=== PATIENT | female | born 1965 | race Caucasian/White ===

== ENCOUNTER 2023-11-07 08:00 | Outpatient (CLI) | payer OTHER ==
--- NOTE | 2023-11-07 14:21 | XRAY Report ---
PROCEDURE: Finger(s) RT INDICATIONS: CONTUSION OF RIGHT HAND TECHNIQUE: AP hand, 2 views of the fourth finger(s) acquired. COMPARISON: None. FINDINGS: Bones: No fractures or dislocations. No suspicious bony lesions. Soft tissues: No suspicious soft tissue calcifications or masses. IMPRESSION: No visualized acute fracture or dislocation. However, occult injury cannot be excluded. Recommend le rt interval imaging follow-up in 7-10 days as clinically indicated for additional evaluation. Reviewed by: Jackie Randolph MD on 11/07/2023 2:20 PM PDT Approved by: Jcakie Randolph MD on 11/07/2023 2:20 PM PDT Station ID: [id number]
== END 2023-11-07 23:59 | disposition home or self-care (01) ==
LOC: DI.S 08:00
PROVIDERS: ATTEND Registered Nurse
DX: S60.221A Contusion of right hand, initial encounter (principal)

== ENCOUNTER 2023-11-29 09:18 | Emergency (ER) | payer OTHER ==
[2023-11-29 09:43] VITALS: O2SAT 100
--- NOTE | 2023-11-29 10:31 | XRAY Report ---
PROCEDURE: Hand 3+V RT INDICATIONS: Trauma TECHNIQUE: 3 views of the hand(s) acquired. COMPARISON: None. FINDINGS: Bones: No fractures or dislocations. No suspicious bony lesions. Soft tissues: No suspicious soft tissue calcifications or masses. IMPRESSION: No acute bony abnormality. Reviewed by: Wilfred Paredes MD on 11/29/2023 10:29 AM PDT Approved by: Wilfred Paredes MD on 11/29/2023 10:29 AM PDT Station ID: [id number]
--- NOTE | 2023-11-29 11:36 | ED Physician Documentation ---
PD HPI UPPER EXT INJURY - Stated complaint Stated Complaint: RT HAND INJ - Chief complaint Chief Complaint: Trauma Ext - History obtained from History obtained from: Patient - Additonal information Additional information: The patient comes to the emergency department chief complaint of ongoing right middle and ring finger pain after an injury 3 weeks ago. 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 She states she initially had swelling over her third and fourth MCP joints but now, the pain and swelling seems to be mainly in her PIP joints. She states her ring finger gets "stuck" in the fully flexed position at the PIP joint when she makes a fist and she has to manually straighten it out with her other hand. She has been seen at the walk-in clinic but has not had an appointment in primary care or any follow-up with hand specialty. She is going to be seen in the [place] clinic following this for referral to hand. The patient denies any new injuries. She denies any sharp pain. No other complaints at this time. 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 - Present Medications Home Medications: Ambulatory Orders Medication Instructions Recorded Confirmed No Known Home Medications 11/29/23 11/29/23 - Allergies Allergies/Adverse Reactions: Allergies Allergy/AdvReac Type Severity Reaction Status Date / Time cyclobenzaprine Allergy Unknown Verified 11/29/23 09:38 [From Flexeril] oxycodone Allergy Itching Verified 11/29/23 09:38 - Social History Does the pt smoke?: Yes Smoking Status: Current every day smoker Does the pt drink ETOH?: Yes Does the pt have substance abuse?: No PD ED PE NORMAL - Vitals Vital signs reviewed: Yes - General General: Alert and oriented X 3, No acute distress, Well developed/nourished - HEENT HEENT: Atraumatic, Moist mucous membranes - Neck Neck: Supple, no meningeal sign - Cardiac Cardiac: Strong equal pulses - Respiratory Respiratory: No respiratory distress - Derm Derm: Normal color, Warm and dry, No rash - Extremities Extremities: No deformity, Other (Moderate edema of third and fourth PIP joints of right hand with tenderness palpation over the medial and lateral aspects of each. Demonstrated locking of PIP joint with complete flexion of the ring finger. Some laxity of fourth MCP joint.) - Neuro Neuro: No motor deficit, No sensory deficit, Other (Alert, grossly intact.) - Psych Psych: Normal mood, Normal affect Results - Vitals Vitals: Vital Signs - 24 hr 11/29/23 09:32 Temperature 36.4 C L Heart Rate 78 Respiratory 16 Rate Blood Pressure 159/88 H O2 Saturation 100 Oxygen O2 Source Room air - Rads (name of study) Right hand x-ray series Relevant Findings:: Final report received, See rad report (Negative) PD Medical Decision Making - ED course Complexity details: reviewed results, re-evaluated patient, considered differential, d/w patient ED course: I discussed with the patient that she indeed does need to follow-up with a hand specialist. I am not entirely certain what the exact nature of her injury is, though her initial and repeat x-rays have both shown no fracture or bony malalignment. I am not sure why she still having swelling of the PIP joints of the mention fingers, but I suspect some ongoing inflammation and healing following the blunt trauma she experienced 3 weeks ago. I discussed with her that at this point, there is really not much to be done acutely in the emergency department. She is requested a splint which I have ordered, as she feels that she is using to her fingers too much at work and they have not had a chance to heal. The patient is already scheduled to see primary care right after this for referral to hand clinic and I feel this is a good follow-up plan. We have discussed symptomatic management at home. Departure - Departure Disposition: 01 Home, Self Care Clinical Impression: Pain of hand after trauma Condition: Stable Instructions: ED Contusion Hand, ED Sprain Hand Comments: Your x-ray looks good again today. You have most likely bruised the underlying tissues in your fingers and possibly, ruptured ligament at the the base or the first joint of your ring finger. If you are having ongoing issues with joint locking up, it is important that you follow-up with the hand specialist. Please talk to primary care about this when you see them at the [place] clinic today. You may use the splint is much as you need to give you support at work, though you should let your fingers out of the splint when you are at home. During this time, you may work on gentle range of motion to keep your fingers flexible and mobile. You may take ibuprofen and/or Tylenol as needed for pain. May also apply ice packs. Resting the fingers and hand will undoubtedly help speed the healing process, and a work note has been given for today. Please talk to your L&I provider about a more specific long-term plan. Forms: PCP List, Activity restrictions
[2023-11-29 11:58] VITALS: BP 142/74
== END 2023-11-29 11:55 | disposition home or self-care (01) ==
LOC: ED 09:18
DX: S69.91XA Unspecified injury of right wrist, hand and finger(s), initial encounter (principal); W22.8XXA Striking against or struck by other objects, initial encounter; X50.0XXA Overexertion from strenuous movement or load, initial encounter; Y99.0 Civilian activity done for income or pay; F17.200 Nicotine dependence, unspecified, uncomplicated
CPT/HCPCS: 99283